=== PATIENT | female | born 1955 | race Caucasian/White ===

== ENCOUNTER 2017-09-12 05:01 | Emergency (ER) | payer OTHER ==
[~2017-09-12] VITALS: Ht 162.6 cm; Wt 104.9 kg
[2017-09-12 05:15] VITALS: Ht 162.6 cm; Wt 104.9 kg
--- NOTE | 2017-09-12 05:36 | ERD ---
ER Documentation Chief Complaint Chief Complaint L ankle bleed d/t varicose veins - suddenly popped while drying legs HPI The patient is a 62-year-old female, presenting to the ER because of spontaneous bleeding from the left ankle varicosis vein why she was drying herself. She had similar symptoms previously. The bleeding stopped spontaneously. 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 She denies fever, chills, neck pain, chest pain, dyspnea, abdominal pain. She does not smoke nor drink Medical history: Diabetes mellitus, hypertension ROS All systems reviewed and are negative except as per history of present illness. Allergies Allergies: Coded Allergies: Penicillins (Unverified Allergy, Mild, 10/28/15) furosemide (Verified Allergy, Unknown, 10/28/15) metformin (Verified Allergy, Unknown, 09/12/17) PMhx/Soc History of Surgery: Yes ([facility] ) Anesthesia Reaction: No Hx Neurological Disorder: No Hx Respiratory Disorders: No Hx Cardiac Disorders: Yes (HTN ) Hx Psychiatric Problems: Yes (ANXIETY ) Hx Miscellaneous Medical Probl: Yes (DM) Hx Alcohol Use: No Hx Substance Use: No Hx Tobacco Use: No Smoking Status: Never smoker Physical Exam Vitals Vital Signs Date Time Temp Pulse Resp B/P Pulse Ox O2 Delivery O2 Flow Rate FiO2 09/12/17 05:15 98.2 75 20 163/74 96 Physical Exam Const: No acute distress. Head: Atraumatic. Eyes: Normal Conjunctiva. ENT: Normal External Ears, Nose and Mouth. Neck: Full range of motion. No meningismus. Resp: Clear to auscultation bilaterally. Cardio: Regular rate and rhythm. Abd: Soft, non distended, normal bowel sounds, non tender. Skin: No petechiae or rashes. Back: No midline or flank tenderness. Ext: No cyanosis, or edema. Small left distal tibia chronic ulcer. No active bleeding at the varicosis vein, no calf tenderness Neur: Awake and alert. No focal deficit Psych: Normal Mood and Affect. Procedures/MDM MEDICAL MAKING DECISION: The patient is a 72-year-old female, presenting with spontaneous bleeding from the left ankle varicosis vein that stopped spontaneously. It was dressed with Surgicel The differential diagnoses considered include but are not limited to cellulitis , DVT, peripheral vascular disease Departure Diagnosis: Primary Impression: Varicose vein of leg Condition: Good Comments I discussed the findings with the patient. I advised the patient to follow-up with the primary physician in about 1-2 days, sooner if needed and return if any concern. Disclaimer: Inadvertent spelling and grammatical errors are likely due to EHR/ dictation software use and do not reflect on the overall quality of patient care. Also, please note that the electronic time recorded on this note does not necessarily reflect the actual time of the patient encounter. NEYDA MARTELL MD Sep 12, 2017 05:36
== END 2017-09-12 05:50 | disposition home or self-care (01) ==
LOC: E/R 05:01
DX: I83.92 Asymptomatic varicose veins of left lower extremity (principal); I10 Essential (primary) hypertension; E11.9 Type 2 diabetes mellitus without complications
CPT/HCPCS: 99282